=== PATIENT | female | born 1930 | race Caucasian/White ===

== ENCOUNTER → 2018-09-02 | Outpatient (CLI) | payer MEDICARE ==
[~2018-09-02] MED LIST: /PRAV20TA OR; AMLO2.5T OR; ASPI325T OR; CALCCHW12 OR; DIOV320T OR; HYDR25TA6 OR; LOPR50TA OR; MULTIVIT PO; VIT D 2000 PO
[2018-09-02 11:12] LABS: CALCIUM LEVEL 8.9 MG/DL (8.8-10.2)
[2018-09-02 11:28] LABS: TOTAL 25(OH) VITAMIN D 66.1 NG/ML (30.0-100.0)
== END ==
LOC: M LAB 10:15
PROVIDERS: ATTEND Nurse Practitioner Family
DX: M81.0 Age-related osteoporosis without current pathological fracture (principal)